=== PATIENT | female | born 1970 | race Hispanic/Latino ===

== ENCOUNTER 2018-12-31 06:45 | Day surgery (SDC) | payer OTHER ==
[2018-12-31] MEDS ORDERED: WATER FOR IRRIG STERILE IR ONE (07:43)
[2018-12-31] MEDS: NACL 0.9% 1000 ML 1,000 ML IV SCH ×2 (07:48→09:02)
--- NOTE | 2018-12-31 08:01 | Anesthesia Day of Surgery ---
Anesthesia Day of Surgery - Day of Surgery Patient Examined: Yes Patient H&P Reviewed: Yes Patient is NPO: Yes
--- NOTE | 2018-12-31 08:05 | Anesthesia Consultation ---
Anesthesia Consult and Med Hx Date of service: 12/31/18 - Airway Anesthetic Teeth Evaluation: Good ROM Head & Neck: Adequate Mental/Hyoid Distance: Adequate Mallampati Class: Class II Intubation Access Assessment: Probably Good - Pre-Operative Health Status ASA Pre-Surgery Classification: ASA3 Proposed Anesthetic Plan: MAC - Pulmonary Hx Respiratory Symptoms: Yes (histoplasmosis) - Gastrointestinal Hx Gastroesophageal Reflux Disease: Yes - Endocrine Hx Hypothyroidism: Yes - Hematic Hx Anemia: Yes
[2018-12-31] MEDS ORDERED: DIPRIVAN 10 MG/ML IV ONE (08:13)
[2018-12-31] MEDS ORDERED: XYLOCAINE 1% 20 mL ONE (08:13)
--- NOTE | 2018-12-31 08:22 | History and Physical Report ---
HISTORY OF PRESENT ILLNESS: This is a 48-year-old white female with an underlying history of polycystic ovarian syndrome, hypothyroidism and histoplasmosis. She has lately been having some epigastric pain that has been radiating to the back and also has been having some GERD symptoms with possible associated esophagitis. She has been advised to have an EGD done, which she is willing to do at [facility] on 12/31/2018. ALLERGIES: She has no known allergies. SOCIAL HISTORY: Denies history of smoking or alcohol use. No cardiac issues. No flu shots. MEDICATIONS: Levoxyl, metformin, meloxicam and hematinic. PHYSICAL EXAMINATION: GENERAL: She is afebrile. VITAL SIGNS: Blood pressure 159/93, pulse is 88, height is 5 feet 4 inches, weight 173 pounds. HEENT: Shows no JVD. LUNGS: Show some reduced breath sounds. CARDIOVASCULAR: Normal. ABDOMEN: Shows some epigastric tenderness with some radiation to the back. No prior history of any abdominal surgery. EXTREMITIES: No pedal edema. NEUROLOGIC: She is alert and oriented. ASSESSMENT: 1. Epigastric pain. 2. Esophagitis. 3. Possible hiatal hernia. PLAN: Plan is to do an EGD at [facility] on 12/31/2018. JOB# [id number] SALLY/NTS
--- NOTE | 2018-12-31 08:36 | Procedure Note ---
Date of procedure: 12/31/18 Pre-op diagnosis: Epigastric Pain Post-op diagnosis: other (Large Duodenal Ulcer (Duodenal bulb)/Gasritis/ Mild, distal Esophagitis/R/O Celiac Disease/ R/O Eosinophilic Esophagitis) Procedure: EGD with Biopsy Anesthesia: MAC Surgeon: KATI HUNT Estimated blood loss: minimal Pathology: list Specimen disposition: to lab Condition: stable Disposition: same day (Treat with PPI and avoid aspirin and NSAID for 5 days and follow up in 1 to 2 weeks ([phone]).)
--- NOTE | 2018-12-31 08:39 | Operative Report ---
PROCEDURE: EGD with biopsy. INDICATIONS: This is a 48-year-old white female who has lately been complaining of some epigastric pain and discomfort. EGD was done to make sure there was not any significant upper GI pathology present. DESCRIPTION OF PROCEDURE: Procedure was done after getting informed consent with MAC anesthesia. Instrument was passed through the hypopharynx into the esophagus, which showed some mild distal esophagitis. Biopsy was done from the midesophagus to rule out for possible eosinophilic esophagitis. There was minimal bleeding from the biopsy sites. Additional biopsy was done from the gastric antrum where there was some mild antral gastritis noted as well as from the gastric body and angular incisura to rule out for H. pylori and atrophic gastritis. The pylorus is patent. The duodenum in the bulb showed a large clean-based duodenal ulcer. Second portion appeared normal. Because of the patient's unusual abdominal pain, biopsy was also done from the second part of the duodenum to rule out for possible celiac disease. Again, there was minimal bleeding from the biopsy sites and no complications associated with the procedure. ASSESSMENT: Epigastric pain, large duodenal ulcer in the duodenal bulb, gastritis, mild distal esophagitis, rule out celiac disease, rule out eosinophilic esophagitis. The patient will be asked to avoid aspirin and aspirin-related products for the next few days. Follow up in the office in 1-2 weeks' time. Further treatment adjustment will be according to the biopsy findings. The patient will be placed on PPI and follow up in 1-2 weeks' time. Procedure was done in the GI lab in the presence and with the assistance of SUNG Pineda and lucy Walker and also with the assistance of anesthesia. JOB# [id number] SALLY/EDWARD
[2018-12-31 08:55] VITALS: BP 98/70
== END 2018-12-31 06:46 | disposition home or self-care (01) ==
LOC: GIO 06:45
DX: K21.0 Gastro-esophageal reflux disease with esophagitis (principal); K29.70 Gastritis, unspecified, without bleeding; K31.89 Other diseases of stomach and duodenum; E03.9 Hypothyroidism, unspecified; D64.9 Anemia, unspecified; Z79.899 Other long term (current) drug therapy; Z79.84 Long term (current) use of oral hypoglycemic drugs; Z98.890 Other specified postprocedural states
CPT/HCPCS: 43239; 81025; 88305; 88342; J2704; J7030